=== PATIENT | male | born 1980 | race Caucasian/White ===

== ENCOUNTER 2016-06-27 12:02 | Emergency (ER) | payer SELFPAY ==
[2016-06-27] MEDS ORDERED: NORCO 325 MG-51 TA1 PO (12:11)
[2016-06-27] MEDS ORDERED: PENICILLIN-VK500 M1 PO (12:11)
[2016-06-27] MEDS ORDERED: IBU800 M1 PO (12:12)
[2016-06-27] MEDS ORDERED: PREDNISONE10 MG PO (13:47)
[2016-06-27] MEDS ORDERED: CLEOCIN HCL300 MG PO (13:47)
[2016-06-27 13:52] VITALS: BP 153/99
== END 2016-06-27 13:53 | disposition home or self-care (01) ==
LOC: ED 12:02
DX: K08.89 Other specified disorders of teeth and supporting structures (principal); F17.210 Nicotine dependence, cigarettes, uncomplicated